=== PATIENT | female | born 1955 | race Caucasian/White ===

== ENCOUNTER → 2016-07-21 | Day surgery (SDC) | payer OTHER ==
[~2016-07-21] MED LIST: ALEVE220 M1 PO; AUGMENTIN PO; AUGMENTIN875 MG PO; BACTRIM DS TABL1 TA1; BACTRIM DS TABL1 TA1 PO; BENTYL10 MG PO; CETIRIZINE HCL5 MG PO; CIPRO PO; CLINDAMYCIN HC300 MG PO; DICYCLOMINE HCL10 MG PO; HYDROCODON-ACE1 EACH PO; HYDROCORTISONE30 G2 EXT; HYDROCORTISONE30 G4 TOP; HYDROXYZINE HCL25 M1 PO; LORTAB 5/500 TA1 TA1 PO; MULTI VITAMIN1 EACH PO; NO MEDICATIONS; NORVASC PO; OMEPRAZOLE20 M1 PO; OMNICEF300 MG PO; PAIN RELIEF325 M1 PO; PERCOCET 5-3251 TAB PO; PHENERGAN12.5 MG PO; PHENERGAN25 MG PO; PREDNISONE PO; PREDNISONE10 MG; PREDNISONE10 MG PO; PREDNISONE5 M1 PO; PRILOSEC40 MG PO; PROTONIX PO; PYRIDIUM PO; ZOFRAN ODT4 MG PO
--- NOTE | ~2016-07-21 | OR ---
Unit #: [id number] #: [id number] Patient: MONICA CASTILLO [id number] [address] [place], [place] [address] [id number] O MR#: [id number] NAME: MONICA CASTILLO ROOM: Date of Procedure: 07/21/2016 Admission Date: 07/21/2016 Surgeon: Tim Randhawa M.D. : 1955 Attending Physician: Tim Randhawa M.D. Referring Physician: Tim Randhawa M.D. Primary Care Physician: Austin Mandel M.D. OPERATIVE REPORT INDICATIONS FOR PROCEDURE Esophagogastroduodenoscopy with biopsy and esophagogastroduodenoscopy with balloon dilatation, colonoscopy with snare polypectomy. INDICATIONS FOR PROCEDURE A 61-year-old female with nausea, vomiting, chronic diarrhea, weight loss, and abdominal pain, undergoing evaluation with upper endoscopy and colonoscopy. MEDICATIONS Monitored anesthesia. POSTOPERATIVE FINDINGS 1. Esophageal ring dilated with a balloon to 18 mm. 2. Gastritis appears chronic, biopsies taken. 3. Biopsies taken in view of ruling out celiac disease. 4. Colonoscopy completed to cecum. Polyp seen in sigmoid colon was snared and sent for histopathology. 5. 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 I had to use an EGD scope to pass through this. 6. No active colitis was seen. PLAN Symptomatic treatment for now. Follow up on the pathology report. PPI therapy. DESCRIPTION OF PROCEDURE The patient was explained of the procedure, risks, and benefits along with risks and benefits of anesthesia. She was brought to the endoscopy room. Propofol anesthesia was given. Bite block was placed. The scope was passed down the mouth into the esophagus, stomach, duodenum, and distal duodenum. Findings as described. Biopsies taken in duodenum and stomach. Esophageal ring was then dilated. Scope was gently pulled out. She tolerated this part very well. At this time, she was turned around and repositioned for colonoscopy. Rectal exam was done, which was normal. Colonoscope was lubricated, passed up to 25 cm. I could not past at this point, I could see the opening and it was possible related to the sigmoid stricture, no clear mass was seen. I used an EGD scope was passed at this area with some Unit #: [id number] #: [id number] Patient: MONICA CASTILLO, but again I passed the scope all the way to the cecum. I then started to pull the scope out. No active colitis was seen. Small polyp seen in sigmoid colon was snared; however, could not be retrieved. I retroflexed in the rectum, small hemorrhoids seen. Scope was gently pulled out. She tolerated it well. No major complications were seen. Dictated by... Elmre Ansari/adrien TD: 07/21/2016 22:38 JOB #: [id number] CC: Bry Rviero M.D. OPERATIVE REPORT Page 1 of 1 X Tim Randhawa MD X PROCEDURE OPERATIVE NOTE
--- NOTE | ~2016-07-21 | CR4 ---
[facility] A Service of [facility] RADIOLOGY TEXT RESULTS PATIENT: MONICA CASTILLO LOCATION: [facility] : [birth year] UNIT #: [id number] AGE: [address]: Tim Randhawa MD SEX: F ORDER DR: [id number] [facility] [address] [facility]. [place], [place] [address] [id number] O MR#: [id number] Acc #: [id number] NAME: MONICA CASTILLO : 1955 SEX: F STUDY DATE/TIME: 07/21/2016 12:46 UNIT: [facility] ROOM: STUDY DESCRIPTION: CR Abdomen Flat Upright or Dec Attending Physician: Tim Randhawa M.D. Referring Physician: Tim Randhawa M.D. Ordering Physician: Tim Randhawa M.D. Primary Care Physician: Austin Mandel M.D. MEDICAL IMAGING REPORT This report is preliminary unless electronic signature is present EXAM Abdomen supine and upright 07/21/2016 1246 hours HISTORY 61-year-old woman with complaint of abdominal pain today following EGD and colonoscopy. COMPARISON CT abdomen and pelvis 09/05/2013. FINDINGS Supine and upright views of the abdomen demonstrate increased gas in both the small bowel and colon. There is no evidence of pneumatosis or free air. There are no suspicious calcifications. Stable underlying scoliosis. IMPRESSION 1. There is increased gas within nondilated loops of small bowel and colon. There is no evidence of pneumatosis, obstruction or free air. No suspicious calcifications. 2. Underlying scoliosis is unchanged. Dictated by... Priscila Alvarado M.D. THIS IS AN ELECTRONICALLY VERIFIED REPORT Priscila Alvarado M.D. at 07/21/2016 2:32 PM BLADIMIR/tommy TD: 07/21/2016 13:47 JOB #: [id number] [facility] A Service [facility] RADIOLOGY TEXT RESULTS PATIENT: MONICA CASTILLO LOCATION: [facility] #: [id number] : [birth year] UNIT #: [id number] AGE: [address]: Tim Randhawa MD SEX: F ORDER DR: MEDICAL IMAGING REPORT Page 1 of 1 COPY
[2016-07-21 13:29] LABS: BASOPHIL% 0.4 % (0-2.5); EOSINOPHIL# 0.1 X10e3 (0-0.7); EOSINOPHIL% 0.6 % (0.0-7.0); HEMATOCRIT 40.2 % (35.0-45.0); HEMOGLOBIN 13.1 gm/dL (12.0-16.0); LYMPHOCYTE# 1.1 X10e3 (1.0-3.5); LYMPHOCYTE% 11.9 % (17.0-45.0); MEAN CELL VOLUME 90.7 FL (83-96); MEAN CORPUSCULAR HEMOGLOBIN 29.6 PG (28-34); MEAN CORPUSCULAR HGB CONC 32.7 g/dL (30-36); MEAN PLATELET VOLUME 9.7 FL (6.5-11.5); MONOCYTE# 0.4 X10e3 (0-1.0); MONOCYTE% 4.4 % (3.0-12.0); NEUTROPHIL# 7.7 X10e3 (1.5-7.1); NEUTROPHIL% 82.7 % (40-75); PLATELET COUNT 196 X10e3 (140-420); RED BLOOD COUNT 4.43 X10e (3.90-5.30); RED CELL DISTRIBUTION WIDTH 13.2 % (11.0-15.5); WHITE BLOOD COUNT 9.3 X10e3 (4.0-10.5)
[2016-07-21 13:30] LABS: DIFF IND NO
[2016-07-21 13:50] LABS: BILIRUBIN,TOTAL 0.9 mg/dL (0.2-2.0); BUN/CREATININE RATIO 21.11; CALCIUM SERUM 9.3 mg/dL (8.4-10.2); CREATININE SERUM 0.9 mg/dL (0.6-1.4); GLOM FILT RATE Estimated 68.1 mL/min (>60); POTASSIUM 3.9 mmol/L (3.5-5.1); PROTEIN TOTAL SERUM 6.9 g/dL (6.0-8.3)
== END | disposition home or self-care (01) ==
LOC: COPS 09:50
PROVIDERS: Internal Medicine
DX: K63.5 Polyp of colon (principal); K29.50 Unspecified chronic gastritis without bleeding; K29.80 Duodenitis without bleeding; K22.2 Esophageal obstruction; K64.9 Unspecified hemorrhoids; F17.210 Nicotine dependence, cigarettes, uncomplicated; Z91.018 Allergy to other foods; Z79.899 Other long term (current) drug therapy; Z90.710 Acquired absence of both cervix and uterus; Z98.51 Tubal ligation status; Z98.890 Other specified postprocedural states
CPT/HCPCS: 74020; 80053; 85025; 86140; 88305; 88312; J2250; J3010